=== PATIENT | female | born 1970 | race Two or more races ===

== ENCOUNTER 2021-05-05 18:16 | Inpatient (IN) | payer OTHER ==
[~2021-05-05] VITALS: Ht 172.7 cm; Wt 84.3 kg
[2021-05-05] MEDS ORDERED: SODIUM CHLORIDE 0.9% 1,000 ML IVB ONE (19:30)
[2021-05-05] MEDS ORDERED: ONDANSETRON HCL 4 MG/2 ML VIAL IV ONE (19:30)
[2021-05-05] MEDS ORDERED: ACETAMINOPHEN 325 MG TAB PO ONE (19:45)
[2021-05-05 20:03] LABS: Basophils # (auto) 0.1 10 ^3/uL (0-0.2); Basophils % (auto) 1.4 % (0.0-2.0); Eosinophils # (auto) 0 10 ^3/uL (0-0.8); Eosinophils % (auto) 0.1 % (0.0-7.0); Hematocrit 44.6 % (36.0-46.0); Hemoglobin 15.7 g/dL (12.2-16.2); Lymphocytes # (auto) 0.5 10 ^3/uL (0.4-5.4); Lymphocytes % (auto) 5.2 % (10.0-50.0); Mean Corpuscular Hemoglobin 33.8 pg (28.0-32.0); Mean Corpuscular Hgb Conc. 35.1 g/dL (32.0-36.0); Mean Corpuscular Volume 96.3 fL (80.0-100.0); Monocytes # (auto) 0.2 10 ^3/uL (0-1.3); Neutrophils # (auto) 9.3 10 ^3/uL (1.6-8.6); Neutrophils % (auto) 91.3 % (37.0-80.0); Nucleated Red Blood Cells % 0.1 %; Red Blood Cells 4.63 10^6/uL (4.0-5.20); Red Cell Distribution Width 12.4 % (11.8-14.3); White Blood Cell 10.1 10^3/uL (4.4-10.8)
[2021-05-05 20:41] LABS: Amylase 49 U/L (25-115); Lipase 70 U/L (73-393)
[2021-05-05 20:44] LABS: Albumin 4.5 g/dL (3.4-5.0); Calcium 9.4 mg/dL (8.5-10.1); Magnesium 2.4 mg/dL (1.6-2.6); Potassium 4.1 mmol/L (3.5-5.1)
[2021-05-05 20:50] LABS: BUN/Creatinine Ratio 14.3; Bilirubin, Total 0.9 mg/dL (0.2-1.0); Total Protein 9.4 g/dL (6.4-8.2)
[2021-05-05] MEDS ORDERED: LORazepam 2MG/ML-1ML VIAL IV ONE (21:00)
[2021-05-05] MEDS ORDERED: DEXTROSE (50%) 50ML SYRG IV PRN (21:15)
[2021-05-05] MEDS: SODIUM CHLORIDE 0.9% 1,000 ML IV SCH (22:45)
[2021-05-06] MEDS ORDERED: KETOROLAC TROMETH 30 MG/ML 1ML VIAL IV ONE (00:30)
[2021-05-06] MEDS: ONDANSETRON HCL 4 MG/2 ML VIAL IV PRN ×4 (00:47→21:17)
[2021-05-06] MEDS: ACCU-CHEK COMFORT CURVE STRIP VI SCH ×4 (00:50→17:56)
[2021-05-06] MEDS: InsuLIN REG 1unit/0.01ml Soln (100units/ml) SC SCH ×4 (00:50→17:56)
[2021-05-06 02:50] LABS: Urine Bacteria NONE SEEN /hpf (None Seen); Urine Blood Negative /uL (Negative); Urine Mucus FEW (None Seen); Urine Specific Gravity 1.025 (1.001-1.035); Urine WBC 1 /hpf (0 - 5)
[2021-05-06 06:13] LABS: Basophils # (auto) 0 10 ^3/uL (0-0.2); Basophils % (auto) 0.4 % (0.0-2.0); Eosinophils # (auto) 0 10 ^3/uL (0-0.8); Eosinophils % (auto) 0.3 % (0.0-7.0); Hematocrit 41.1 % (36.0-46.0); Lymphocytes # (auto) 1.1 10 ^3/uL (0.4-5.4); Lymphocytes % (auto) 13.1 % (10.0-50.0); Mean Corpuscular Hemoglobin 33.3 pg (28.0-32.0); Mean Corpuscular Hgb Conc. 34.2 g/dL (32.0-36.0); Mean Corpuscular Volume 97.3 fL (80.0-100.0); Monocytes # (auto) 0.6 10 ^3/uL (0-1.3); Monocytes % (auto) 7.2 % (0.0-12.0); Neutrophils # (auto) 6.8 10 ^3/uL (1.6-8.6); Red Blood Cells 4.22 10^6/uL (4.0-5.20); Red Cell Distribution Width 12.7 % (11.8-14.3); White Blood Cell 8.6 10^3/uL (4.4-10.8)
[2021-05-06 06:27] LABS: Potassium 3.5 mmol/L (3.5-5.1)
[2021-05-06 06:40] LABS: Albumin 3.9 g/dL (3.4-5.0); BUN/Creatinine Ratio 21.3; Bilirubin, Total 1.2 mg/dL (0.2-1.0); Calcium 8.7 mg/dL (8.5-10.1); Total Protein 7.9 g/dL (6.4-8.2)
[2021-05-06] MEDS: MORPHINE SULFATE 4 MG/ML SYR/VIAL IV PRN ×3 (06:57→21:17)
[2021-05-06] MEDS ORDERED: GASTROGRAFIN 120 ML SOL ONE (09:34)
[2021-05-06] MEDS: SODIUM CHLORIDE 0.9% 1,000 ML IV SCH ×2 (10:35→13:09)
[2021-05-07] MEDS: MORPHINE SULFATE 4 MG/ML SYR/VIAL IV PRN ×5 (02:15→22:47)
[2021-05-07] MEDS: ONDANSETRON HCL 4 MG/2 ML VIAL IV PRN ×4 (02:15→17:36)
[2021-05-07] MEDS: ACCU-CHEK COMFORT CURVE STRIP VI SCH ×5 (02:43→22:50)
[2021-05-07 04:05] VITALS: BP 147/93
[2021-05-07] MEDS ORDERED: PROP60CA34 PO (04:46)
[2021-05-07 05:42] LABS: Albumin 3.2 g/dL (3.4-5.0); Calcium 8.5 mg/dL (8.5-10.1); Potassium 3.5 mmol/L (3.5-5.1)
[2021-05-07 05:44] LABS: BUN/Creatinine Ratio 33.8
[2021-05-07 05:50] LABS: Bilirubin, Total 1.1 mg/dL (0.2-1.0); Total Protein 6.5 g/dL (6.4-8.2)
[2021-05-07] MEDS: InsuLIN REG 1unit/0.01ml Soln (100units/ml) SC SCH ×5 (06:00→22:47)
[2021-05-07 09:00] VITALS: BP 145/92
[2021-05-07] MEDS ORDERED: GABA300C10 PO (10:56)
[2021-05-07] MEDS ORDERED: BENA10TA15 PO (10:56)
[2021-05-07] MEDS: BENAZEPRIL HCL 10 MG TAB PO SCH (11:48)
[2021-05-07 12:16] VITALS: BP 142/93
[2021-05-07] MEDS: SODIUM CHLORIDE 0.9% 1,000 ML IV SCH ×2 (14:04→14:45)
[2021-05-08] MEDS: MORPHINE SULFATE 4 MG/ML SYR/VIAL IV PRN ×4 (05:16→23:10)
[2021-05-08] MEDS: InsuLIN REG 1unit/0.01ml Soln (100units/ml) SC SCH ×4 (06:00→23:06)
[2021-05-08 07:56] LABS: Albumin 3.1 g/dL (3.4-5.0); Bilirubin, Total 0.8 mg/dL (0.2-1.0); Calcium 8.3 mg/dL (8.5-10.1); Total Protein 6.4 g/dL (6.4-8.2)
[2021-05-08] MEDS: ACCU-CHEK COMFORT CURVE STRIP VI SCH ×4 (08:01→22:41)
[2021-05-08] MEDS: BENAZEPRIL HCL 10 MG TAB PO SCH (09:01)
[2021-05-08] MEDS ORDERED: POTASSIUM CHL 20 Meq TABLET PO ONE (09:15)
[2021-05-08 09:31] VITALS: BP 133/87
[2021-05-08] MEDS: SODIUM CHLORIDE 0.9% 1,000 ML IV SCH (10:24)
[2021-05-08 16:35] VITALS: BP 126/85
[2021-05-08] MEDS ORDERED: TEMAZEPAM 15 MG CAP PO ONE (19:30)
[2021-05-08 22:00] VITALS: BP 144/82
[2021-05-09] MEDS: SODIUM CHLORIDE 0.9% 1,000 ML IV SCH (00:05)
[2021-05-09 04:44] VITALS: BP 131/84
[2021-05-09 05:37] LABS: Magnesium 1.7 mg/dL (1.6-2.6); Potassium 3.7 mmol/L (3.5-5.1)
[2021-05-09] MEDS: InsuLIN REG 1unit/0.01ml Soln (100units/ml) SC SCH ×3 (06:00→17:35)
[2021-05-09] MEDS: ACCU-CHEK COMFORT CURVE STRIP VI SCH ×3 (06:44→17:34)
[2021-05-09] MEDS: MORPHINE SULFATE 4 MG/ML SYR/VIAL IV PRN ×2 (08:40→14:23)
[2021-05-09 09:11] VITALS: BP 145/84
[2021-05-09] MEDS: BENAZEPRIL HCL 10 MG TAB PO SCH (09:44)
[2021-05-09] MEDS ORDERED: MAGNESIUM SULFATE 1GM/100ML 100 ML IV ONE (10:00)
[2021-05-09] MEDS ORDERED: POTASSIUM EFFERVESENT TAB 25 MEQ PO ONE (10:00)
[2021-05-09 12:46] VITALS: BP 128/83
[2021-05-09 17:08] VITALS: BP 140/89
[2021-05-09 19:35] VITALS: BP 145/84
== END 2021-05-09 21:02 | disposition home or self-care (01) | DRG 247 ==
LOC: ER 18:19 → OVERFLOW 21:15 → WEST WING 05-06 23:42
PROVIDERS: ADMIT Nurse Practitioner; ATTEND Internal Medicine
DX: K56.600 Partial intestinal obstruction, unspecified as to cause (principal); E87.6 Hypokalemia; Z20.822 Contact with and (suspected) exposure to COVID-19; I10 Essential (primary) hypertension; Z80.9 Family history of malignant neoplasm, unspecified; Z90.49 Acquired absence of other specified parts of digestive tract; R73.03 Prediabetes
CPT/HCPCS: 36415; 74018; 74176; 74250; 80053; 81001; 82150; 82962; 83036; 83690; 83735; 84132; 84484; 85025; 87426; 93005; 96361; 96374; 96375; G0378; J1815; J1885; J2405